=== PATIENT | male | born 2000 | race Caucasian/White ===

== ENCOUNTER 2024-05-23 13:01 | Emergency (ER) | payer BC ==
[~2024-05-23] VITALS: Ht 190.5 cm; Wt 84.1 kg
[2024-05-23 13:06] VITALS: BP 149/80; TEMP 98.5
[2024-05-23 15:20] LABS: PH 6.5 (5.0-8.5); URINE APPEARANCE CLEAR (CLEAR/HAZY); URINE BLOOD NEGATIVE (NEGATIVE); URINE COLOR YELLOW (YELLOW); URINE GLUCOSE NEGATIVE (NEGATIVE); URINE KETONE TRACE (NEGATIVE); URINE NITRATE NEGATIVE (NEGATIVE); URINE PROTEIN(semi-quant) NEGATIVE (NEGATIVE); URINE UROBILINOGEN 0.2 E.U/dL (0.2-1.0)
[2024-05-23 15:49] LABS: COLLECTION METHOD CLEAN CATCH
[2024-05-23 16:37] VITALS: PULSE 94
== END 2024-05-23 16:35 | disposition home or self-care (01) ==
LOC: COL.ER 13:01
PROVIDERS: Emergency Medicine
DX: N50.812 Left testicular pain (principal)